=== PATIENT | male | born 1960 | race Caucasian/White ===

== ENCOUNTER → 2018-09-19 | Outpatient (CLI) | payer OTHER ==
[~2018-09-19] MED LIST: ACYC-57 PO; MULT1TAB60 PO; POTA99TA8 PO; RANI150T4 PO
[2018-09-19 09:09] LABS: BASOPHILS # (AUTO) 0.05 x10^3/uL (0-0.1); BASOPHILS % (AUTO) 1 % (0-1); EOSINOPHILS # (AUTO) 0.18 x10^3/uL (0-0.4); EOSINOPHILS % (AUTO) 4 % (1-7); LYMPHOCYTES # (AUTO) 1.24 x10^3/uL (1-3.4); LYMPHOCYTES % (AUTO) 27 % (22-44); MD NO; MEAN CORPUSCULAR HEMOGLOBIN 30.1 pg (27.5-34.5); MEAN CORPUSCULAR HGB CONC 32.9 g/dL (33.2-36.2); MEAN CORPUSCULAR VOLUME 91.5 fL (81-97); MEAN PLATELET VOLUME 9.4 fL (7.4-10.4); MONOCYTES # (AUTO) 0.35 x10^3/uL (0.2-0.8); MONOCYTES % (AUTO) 8 % (2-9); NEUTROPHILS # (AUTO) 2.76 x10^3/uL (1.8-6.8); NEUTROPHILS % (AUTO) 60 % (42-75); PLATELET COUNT 230 x10^3/uL (130-400); RED BLOOD COUNT 4.93 x10^6/uL (4.38-5.82); RED CELL DISTRIBUTION WIDTH 13.8 % (9.4-14.8)
[2018-09-19 09:20] LABS: INTERNATIONAL NORMALIZED RATIO 1.08 (0.93-1.1); PROTHROMBIN TIME 11.4 Seconds (9.6-11.5)
[2018-09-19 09:21] LABS: ALANINE AMINOTRANSFERASE 28 U/L (12-78); ALBUMIN 3.8 g/dL (3.4-5.0); ANION GAP 5 mmol/L (5-15); CALCIUM 7.9 mg/dL (8.5-10.1); CHLORIDE 112 mmol/L (98-107)
[2018-09-19 09:23] LABS: ALKALINE PHOSPHATASE 90 U/L (45-117); BILIRUBIN,TOTAL 0.4 mg/dL (0.2-1.0); TOTAL PROTEIN 6.5 g/dL (6.4-8.2)
== END | disposition home or self-care (01) ==
LOC: STAR 07:59
PROVIDERS: ATTEND Orthopaedic Surgery
DX: Z01.818 Encounter for other preprocedural examination (principal); M16.12 Unilateral primary osteoarthritis, left hip; M25.552 Pain in left hip
CPT/HCPCS: 36415; 80053; 83036; 85025; 85610; 85730; 87081; 93005

== ENCOUNTER 2018-10-10 06:12 | Inpatient (IN) | payer OTHER ==
[~2018-10-10] VITALS: Ht 175.3 cm; Wt 82.7 kg
[2018-10-10] MEDS ORDERED: ACETAMINOPHEN 500 MG TABLET PO ONE (07:00)
[2018-10-10] MEDS ORDERED: GABAPENTIN 300 MG CAPSULE PO ONE (07:00)
[2018-10-10] MEDS ORDERED: LACTATED RINGERS 1,000 ML IV SCH (07:00)
[2018-10-10] MEDS ORDERED: NS + 20MEQ KCL 1,000 ML IV SCH (07:45)
[2018-10-10] MEDS ORDERED: TRANEXAMIC ACID 100 MG/ML, 10ML ONE ×2 (07:54)
[2018-10-10] MEDS ORDERED: KETOROLAC 60 MG/2 ML ONE (07:54)
[2018-10-10] MEDS ORDERED: VANCOMYCIN 1,000 MG ONE (07:55)
[2018-10-10] MEDS ORDERED: SODIUM CHLORIDE 0.9% 100 ML ONE (07:55)
[2018-10-10] MEDS ORDERED: EPINEPHRINE 1 MG/ML, 1ML ONE (07:55)
[2018-10-10] MEDS ORDERED: ROPIvacaine/PF 0.5%, 30 ML ONE (07:55)
[2018-10-10] MEDS ORDERED: FENTANYL PF 250 MCG/5ML ONE (07:56)
[2018-10-10] MEDS ORDERED: MIDAZOLAM 1 MG/ML, 2ML ONE (07:56)
[2018-10-10] MEDS ORDERED: ACYCLOVIR 800 MG PO PRN (08:00)
[2018-10-10] MEDS ORDERED: DIPHENHYDRAMINE 25 MG CAPSULE PO PRN (08:00)
[2018-10-10] MEDS ORDERED: ONDANSETRON 2MG/ML, 2ML IV PRN ×2 (08:00→09:30)
[2018-10-10] MEDS ORDERED: BISACODYL 10 MG SUPP PR PRN (08:00)
[2018-10-10] MEDS ORDERED: HYDROcodone/APAP 5/325 TABLET PO PRN (08:00)
[2018-10-10] MEDS ORDERED: SCOPOLAMINE PATCH, 1.5MG PATCH.TD72 TD ONE (08:00)
[2018-10-10] MEDS ORDERED: LIDOCAINE 4%, 4 ML SYR/CANN TP ONE (08:41)
[2018-10-10] MEDS ORDERED: DOCUSATE 100 MG CAPSULE PO SCH (09:00)
[2018-10-10] MEDS ORDERED: PLEASE ENTER ALLERGIES MC SCH (09:00)
[2018-10-10] MEDS ORDERED: MAGNESIUM HYDROXIDE 8%, 30ML UDC PO PRN (09:00)
[2018-10-10] MEDS ORDERED: SENNA/DOCUSATE TABLET PO PRN (09:00)
[2018-10-10] MEDS ORDERED: FAMOTIDINE 20 MG TABLET PO SCH (09:00)
[2018-10-10] MEDS ORDERED: ONDANSETRON 2MG/ML, 2ML ONE (09:12)
[2018-10-10] MEDS ORDERED: ROCURONIUM 10MG/ML,5ML ONE (09:12)
[2018-10-10] MEDS ORDERED: SUCCINYLCHOLINE 20 MG/ML, 10ML ONE (09:12)
[2018-10-10] MEDS ORDERED: MEPERIDINE/PF 50 MG/ML ONE (09:12)
[2018-10-10] MEDS ORDERED: GLYCOPYRROLATE 0.2MG/1ML, 5ML ONE (09:12)
[2018-10-10] MEDS ORDERED: PROPOFOL 10 MG/ML, 20ML ONE (09:12)
[2018-10-10] MEDS ORDERED: NEOSTIGMINE 1 MG/ML, 10ML ONE (09:12)
[2018-10-10] MEDS ORDERED: CEFAZOLIN 1,000 MG ONE (09:12)
[2018-10-10] MEDS ORDERED: DEXAMETHASONE 4 MG/ML, 1ML ONE (09:12)
[2018-10-10] MEDS ORDERED: OXYcodone 5 MG/5 ML ORAL.SOL UDC PO PRN (09:30)
[2018-10-10] MEDS ORDERED: HYDROmorphone 2 MG/ML, 1ML IVPush PRN (09:30)
[2018-10-10] MEDS ORDERED: DIAZEPAM 5 MG/ML, 2ML IVPush PRN (09:30)
[2018-10-10] MEDS ORDERED: MEPERIDINE/PF 25MG/0.5ML IVPush PRN (09:30)
[2018-10-10] MEDS ORDERED: PROCHLORPERAZINE 5 MG/ML, 2ML IM PRN (09:30)
[2018-10-10] MEDS ORDERED: ONDANSETRON ODT 8 MG PO PRN (09:30)
[2018-10-10] MEDS ORDERED: PROMETHAZINE 25 MG/ML, 1ML IV PRN (09:30)
[2018-10-10] MEDS ORDERED: FENTANYL PF 100 MCG/2ML ONE (09:52)
[2018-10-10] MEDS ORDERED: HYDROmorphone 2 MG/ML, 1ML ONE (09:52)
[2018-10-10] MEDS ORDERED: OXYcodone 5 MG/5 ML ORAL.SOL UDC ONE (09:52)
[2018-10-10] MEDS: FENTANYL PF 100 MCG/2ML IV PRN ×4 (10:23→10:40)
[2018-10-10 11:15] VITALS: BP 100/67
[2018-10-10] MEDS ORDERED: ONDANSETRON 4 MG TABLET PO PRN (12:00)
[2018-10-10] MEDS ORDERED: ACETAMINOPHEN 325 MG TABLET PO PRN (12:00)
[2018-10-10] MEDS ORDERED: ACYCLOVIR MC SCH (12:00)
[2018-10-10 14:00] VITALS: BP 105/75
[2018-10-10] MEDS: OXYcodone IR 5MG TABLET PO PRN ×2 (14:09→18:13)
[2018-10-10 14:12] VITALS: BP 100/67
[2018-10-10] MEDS ORDERED: OXYC5CAP2 PO (16:32)
[2018-10-10] MEDS ORDERED: MELO7.5T31 PO (16:33)
[2018-10-10] MEDS ORDERED: TRAM50TA2 PO (16:33)
[2018-10-10] MEDS ORDERED: CEFAZOLIN PMX 2GM/50ML 50 ML IVPB SCH (17:30)
[2018-10-10] MEDS ORDERED: ASPIRIN 81 MG TABLET EC PO SCH (18:00)
[2018-10-10] MEDS ORDERED: ZOLPIDEM 5MG TABLET PO PRN (21:00)
[2018-10-11] MEDS ORDERED: DEXAMETHASONE 4 MG/ML, 1ML IVPush SCH (06:00)
== END 2018-10-10 19:35 | disposition home or self-care (01) | DRG 470 ==
LOC: ORIP 06:12 → 4NOR 11:08
PROVIDERS: ADMIT Orthopaedic Surgery; ATTEND Orthopaedic Surgery
PROC: 0SRB06A Replacement of Left Hip Joint with Oxidized Zirconium on Polyethylene Synthetic Substitute, Uncemented, Open Approach (ICD-10-PCS; principal; 2018-10-10 09:15)
DX: M16.12 Unilateral primary osteoarthritis, left hip (principal); Z88.1 Allergy status to other antibiotic agents
CPT/HCPCS: 73501; 76000; J3490; G0378; J0171; J0690; J1100; J1885; J2175; J2250; J2405; J2704; J2710; J2795; J3010; J3370; Q0162; J0330; J7120

== ENCOUNTER 2021-03-24 13:55 | Emergency (ER) | payer OTHER ==
[~2021-03-24] VITALS: Ht 175.3 cm; Wt 82.3 kg
[~2021-03-24 13:55] MED LIST changes: +MELO7.5T31 PO; +MULT-449 PO; -MULT1TAB60 PO; +OXYC5CAP2 PO; +TRAM50TA2 PO
--- NOTE | 2021-03-24 16:12 | NUR ---
pressure controller: Pt ambulatory to room from lobby at this time.
[2021-03-24] MEDS ORDERED: METHOCARBAMOL 750 MG TABLET ONE (16:51)
[2021-03-24] MEDS ORDERED: KETOROLAC 30 MG/1 ML ONE (16:51)
--- NOTE | 2021-03-24 16:56 | NUR ---
MEDS ADMIN PER MAR;.
[2021-03-24 16:58] VITALS: BP 135/80
[2021-03-24] MEDS ORDERED: KETOROLAC 30 MG/1 ML IM ONE (17:30)
[2021-03-24] MEDS ORDERED: METHOCARBAMOL 750 MG TABLET PO ONE (17:30)
== END 2021-03-24 17:11 | disposition home or self-care (01) ==
LOC: ED 17:10
DX: S16.1XXA Strain of muscle, fascia and tendon at neck level, initial encounter (principal); R94.6 Abnormal results of thyroid function studies; R51.9 Headache, unspecified; R42 Dizziness and giddiness; V49.49XA Driver injured in collision with other motor vehicles in traffic accident, initial encounter; Y93.89 Activity, other specified; Y92.89 Other specified places as the place of occurrence of the external cause; Y99.8 Other external cause status
CPT/HCPCS: 70450; 72125; 96372; 99285; J1885

== ENCOUNTER → 2021-04-20 | Outpatient (CLI) | payer OTHER | END | disposition home or self-care (01) | LOC: EDSTATUS 04-18 07:30 → RAD 13:55 → EDSTATUS 14:30 | PROVIDERS: ATTEND Nurse Practitioner Family | DX: E04.1 Nontoxic single thyroid nodule (principal) | CPT/HCPCS: 76536 ==

== ENCOUNTER 2021-05-10 12:48 | Outpatient (CLI) | payer OTHER ==
[~2021-05-10 12:48] MED LIST changes: +LIDOCAINE 1%, 10ML ONE
[2021-05-10] MEDS ORDERED: LIDOCAINE-MPF 1%, 5ML ONE (13:04)
== END 2021-05-10 23:59 | disposition home or self-care (01) ==
LOC: RAD 12:48
PROVIDERS: ATTEND Nurse Practitioner Family
DX: E04.1 Nontoxic single thyroid nodule (principal)
CPT/HCPCS: 10005; 88112; 88173; 88305; J3490; 10006; 76942